=== PATIENT | male | born 1985 | race African-American/Black ===

== ENCOUNTER 2016-08-01 14:38 | Emergency (ER) | payer OTHER ==
[~2016-08-01] VITALS: Ht 182.9 cm; Wt 89.0 kg
[2016-08-01 14:40] VITALS: Ht 182.9 cm; Wt 89.0 kg
[2016-08-01] MEDS ORDERED: HYDROCODONE/APAP (5/325) TAB PO ONE (15:00)
--- NOTE | 2016-08-01 16:20 | RADRPT ---
PROCEDURE: Left wrist series. CLINICAL INDICATION: Left wrist pain after trauma TECHNIQUE: 4 views of the left wrist were obtained. COMPARISON: No prior studies are available for comparison. FINDINGS: There is normal mineralization and alignment of the bones of the left wrist . there well corticated osseous fragment just dorsal to the carpal bones which likely represent sequela of prior trauma. Th ere is no definite acute fracture The scapholunate interval is not well evaluated due to slightly ro tated wrist on the frontal view. There is no evidence of scaphoid lunate widening.. Joint spaces a re well maintained. No erosions or osteophytes are seen. The soft tissues are within normal limits. IMPRESSION: 1. Study slightly limited by patient positioning. No definitive evidence of acute fracture or disl ocation. 2. Well corticated osseous fragments dorsal to the carpal bones are likely related to prior trauma. 3. If there is high clinical concern for occult fracture, recommend CT of the left wrist. RPTAT: KK .Luis Fisher MD, MD Date Time Electronically viewed and signed by .Luis Fisher MD, on 08/01/2016 16:19 .B/
--- NOTE | 2016-08-01 16:21 | RADRPT ---
PROCEDURE: Left elbow series. CLINICAL INDICATION: Left elbow pain after trauma TECHNIQUE: Three views of the left elbow are available for review COMPARISON: None available FINDINGS: There is normal mineralization and alignment of the bones of the elbow. There is no elevation of th e anterior or posterior fat pads to suggest joint effusion. There is an enthesophyte overlying the d orsal aspect of the proximal ulna. There is lucency at the base of this enthesophyte which may be n ormal for this patient, however may represent a fracture of the cephalic. There is mild soft tissue swelling with region. The soft tissues are otherwise within normal limits . IMPRESSION: 1. Questionable fracture enthesophyte of the proximal ulna. Recommend correlation with point tende rness. 2. No other evidence of acute fracture or dislocation. RPTAT: KK .Luis Fisher MD, Date Time Electronically viewed and signed by .Luis Fisher MD, on 08/01/2016 16:21 .B/
[2016-08-01] MEDS ORDERED: IBUP-1542 PO (16:24)
[2016-08-01] MEDS ORDERED: HYDR-906 PO (16:24)
--- NOTE | 2016-08-01 16:32 | ERD ---
ER Documentation Chief Complaint Date/Time DATE: 08/01/16 TIME: 16:29 Chief Complaint LEFT ARM PAIN HPI This 31-year-old male complains of left wrist and left elbow pain after skateboarding accident 2 weeks ago. He was in a splint which he removed last week as it was uncomfortable. States that he was supposed to have a appointment with a hand surgery today but he missed his appointment and rescheduled it. He complains of pain and is requesting evaluation for possible reapplication of splint. He denies any fevers, weakness ROS All systems reviewed and are negative except as per history of present illness. Medications Home Meds Active Scripts Ibuprofen* (Motrin*) 600 Mg Tab, 600 MG PO Q6, #20 TAB Prov:DAVY MAYA MD 08/01/16 Hydrocodone/Acetaminophen (Elmer 5-325 Tablet) 1 Each Tablet, 1 TAB PO Q6H Y for PAIN, #7 TAB Prov:DAVY MAYA MD 08/01/16 PMhx/Soc Medical and Surgical Hx: pt denies Medical Hx, pt denies Surgical Hx Hx Alcohol Use: No Hx Substance Use: No Hx Tobacco Use: No Smoking Status: Never smoker Physical Exam Vitals Vital Signs Date Time Temp Pulse Resp B/P Pulse Ox O2 Delivery O2 Flow Rate FiO2 08/01/16 14:40 98.1 70 18 143/90 99 Physical Exam Const: [] Alert, not ill-appearing. Head: Atraumatic Eyes: Normal Conjunctiva ENT: Normal External Ears, Nose and Mouth. Neck: Full range of motion..~ No meningismus. Resp: Clear to auscultation bilaterally Cardio: Regular rate and rhythm, no murmurs Abd: Soft, non tender, non distended. Normal bowel sounds Skin: No petechiae or rashes Back: No midline or flank tenderness Ext: No cyanosis, or edema. There is some mild tenderness in the dorsum left wrist joint without appreciable snuffbox tenderness and no restricted range of motion weakness. There is mild tenderness to the left olecranon without effusion, deformities, restricted range of motion weakness. Neur: Awake and alert Psych: Normal Mood and Affect Results 24 hrs Current Medications Medications (Trade) Dose Ordered Sig/Nury Route PRN Reason Start Time Stop Time Status Last Admin Dose Admin Acetaminophen/ Hydrocodone Bitart (Elmer (5/325)) 1 tab ONCE ONCE PO 08/01/16 15:00 08/01/16 15:01 DC 08/01/16 14:59 Procedures/MDM X-ray left elbow 3V Interpreted by me: Fat Pads: [Normal] Bones: There are some calcifications at the olecranon queryhistory of trauma. Joints: [No dislocation] Foreign body: [None]. Patient having calcification of the olecranon suggesting old trauma or avulsion fractures. X-ray left wrist 3V Interpreted by me: Scaphoid: [Normal] Bones: There is some dorsal calcifications of the carpals which appear well- corticated. Joints: [No dislocation] Foreign body: [None]. Dorsal calcifications of the carpals suggesting old subacute trauma or fractures. Patient was placed in left short arm splint. And left arm sling. Patient has signs of left wrist and left elbow trauma which appear subacute. No appreciable acute fracture. Patient was discharged home in a splint and sling with instructions to keep his hand surgery appointment as scheduled otherwise return for fevers, redness, new worsening symptoms. Patient was given #7 Elmer for pain and instructed to follow-up with primary doctor and orthopedist for further evaluation. Signs or symptoms do not suggest septic arthritis, ischemia , deficits. Departure Diagnosis: Primary Impression: Wrist fracture, left Encounter type: initial encounter Fracture type: closed Qualified Code: S62.102A - Wrist fracture, left, closed, initial encounter Condition: Stable Patient Instructions: Elbow Fracture, Fracture, Wrist [General] Referrals: [facility] Additional Instructions: There is small areas of calcification on the wrist and elbow likely representing previous fracture but uncertain age. See orthopedist or hand surgeon as scheduled. DAVY MAYA MD Aug 01, 2016 16:32
== END 2016-08-01 17:01 | disposition home or self-care (01) ==
LOC: FTE 14:38
DX: S62.102A Fracture of unspecified carpal bone, left wrist, initial encounter for closed fracture (principal); V00.138A Other skateboard accident, initial encounter
CPT/HCPCS: 29125; 73080; 73110; Z7502; Z7610